=== PATIENT | male | born 1995 | race Caucasian/White ===

== ENCOUNTER 2021-10-12 22:54 | Emergency (ER) | payer OTHER ==
[~2021-10-12] VITALS: Ht 177.8 cm; Wt 81.6 kg
[2021-10-12 23:01] VITALS: BP 134/93
[2021-10-13] MEDS ORDERED: TETANUS-DIPTH-ACEL PERTUSSIS 0.5ML SYR Tdap IM ONE (01:15)
[2021-10-13] MEDS ORDERED: LIDOCAINE 1%HCL (LOCAL ANESTH) 10 ML MDV ONE (01:15)
[2021-10-13] MEDS ORDERED: AMOXICILLIN/CLAVUL 875 MG TAB PO ONE (01:15)
[2021-10-13] MEDS ORDERED: ONDANSETRON ODT 4 MG TAB PO ONE (01:15)
[2021-10-13] MEDS ORDERED: OXYCODONE W/ ACETAMINOPHEN 5/325MG TABLET PO ONE (01:15)
[2021-10-13] MEDS ORDERED: LIDOCAINE 1% HCL (LOCAL ANESTH.) INJ 20ML MDV ID ONE (01:15)
[2021-10-13] MEDS ORDERED: BACITRACIN TOP OINT 1 UD PKG TOP ONE (01:45)
[2021-10-13] MEDS ORDERED: AMOX500T86 PO (02:33)
[2021-10-13] MEDS ORDERED: PERCOT PO (02:33)
[2021-10-13] MEDS ORDERED: ONDA-144 PO (02:33)
== END 2021-10-13 02:45 | disposition home or self-care (01) ==
LOC: ER 22:54
DX: S61.412A Laceration without foreign body of left hand, initial encounter (principal); W54.0XXA Bitten by dog, initial encounter; Y93.89 Activity, other specified; Y92.89 Other specified places as the place of occurrence of the external cause; Y99.8 Other external cause status
CPT/HCPCS: 12001; 73130; 99284; J2001; Q0162